=== PATIENT | female | born 1985 | race Two or more races ===

== ENCOUNTER 2020-12-10 10:39 | Inpatient (IN) | payer OTHER ==
[~2020-12-10] VITALS: Ht 157.5 cm; Wt 90.1 kg
[2020-12-10 11:49] LABS: BASOPHILS % (AUTO) 1 % (0-1); EOSINOPHILS % (AUTO) 1 % (1-7); LYMPHOCYTES % (AUTO) 24 % (22-44); MEAN CORPUSCULAR HEMOGLOBIN 28.3 pg (27.0-34.8); MEAN CORPUSCULAR HGB CONC 33.5 g/dL (32.4-35.8); MEAN PLATELET VOLUME 9.8 fL (7.4-10.4); MONOCYTES % (AUTO) 4 % (2-9); NEUTROPHILS % (AUTO) 70 % (42-75); PLATELET COUNT 279 x10^3/uL (130-400); RED CELL DISTRIBUTION WIDTH 13.6 % (9.6-15.2)
[2020-12-10 11:56] LABS: MD NO
[2020-12-10 12:02] LABS: ALBUMIN 3.8 g/dL (3.4-5.0); ANION GAP 9 mmol/L (5-15); CALCIUM 9.5 mg/dL (8.5-10.1); CHLORIDE 99 mmol/L (98-107)
--- NOTE | 2020-12-10 12:03 | NUR ---
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
--- NOTE | 2020-12-10 12:29 | NUR ---
PT CAME IN CO LOWER LEG SORES AND WOUNDS. THERE IS SIGNIFICANT WOUND ON HER RIGHT LOWER LEG THAT HAS BEEN "LIKE THAT FOR 3 MONTHS". PT HAS HX OF DMII. ACCOMPANIED BY FRIEND. CONNECTED TO MONITORING EQUIPMENT
[2020-12-10] MEDS ORDERED: INSULIN LISPRO 100 UNITS/ML, PEN ONE (13:21)
[2020-12-10] MEDS ORDERED: AMPICILLIN/SULBACTAM 3 GM in SODIUM CHLORIDE 0.9% 100 ML IV ONE (13:30)
[2020-12-10] MEDS ORDERED: VANCOMYCIN PER PHARMACY MC PRN ×2 (13:30→16:00)
[2020-12-10] MEDS ORDERED: INSULIN REGULAR 100 UNITS/ML, 3ML VIAL IVPush ONE (13:30)
[2020-12-10] MEDS ORDERED: PLEASE ENTER ALLERGIES MC SCH (13:30)
[2020-12-10] MEDS ORDERED: SODIUM CHLORIDE 0.9% 1,000ML IVBOLUS ONE (14:00)
[2020-12-10 14:06] LABS: HCT (SEDRATE) 42.4 % (34.6-47.8)
[2020-12-10] MEDS ORDERED: PHARMACOKINETIC MONITORING MC PRN (14:30)
[2020-12-10] MEDS ORDERED: VANCOMYCIN 1,600 MG in SODIUM CHLORIDE 0.9% 250 ML IV ONE (14:30)
[2020-12-10] MEDS ORDERED: KETOROLAC 30 MG/1 ML ONE (15:04)
[2020-12-10] MEDS ORDERED: METF500T17 PO (15:10)
[2020-12-10] MEDS ORDERED: LOSA25TA25 PO (15:10)
[2020-12-10] MEDS ORDERED: KETOROLAC 30 MG/1 ML IVPush ONE (15:30)
[2020-12-10] MEDS: AMPICILLIN/SULBACTAM 3 GM in SODIUM CHLORIDE 0.9% 100 ML IV SCH (15:56)
[2020-12-10] MEDS ORDERED: INSULIN LISPRO 100 UNIT/ML, 3ML VIAL SQ-INSULIN SCH (16:00)
[2020-12-10] MEDS ORDERED: BUTALB/APAP/CAFFEINE 50MG/325MG/40MG PO PRN (16:00)
[2020-12-10] MEDS ORDERED: ONDANSETRON ODT 4 MG PO PRN (16:00)
[2020-12-10] MEDS ORDERED: GUAIFENESIN/DM 200-20MG, 10ML UDC PO PRN (16:00)
[2020-12-10] MEDS ORDERED: ENALAPRILAT 1.25 MG/ML, 2ML IVPush PRN (16:00)
[2020-12-10] MEDS ORDERED: BACLOFEN 10 MG TABLET PO PRN (16:00)
[2020-12-10] MEDS ORDERED: LABETALOL 5MG/ML, 20ML IVPush PRN (16:00)
[2020-12-10] MEDS ORDERED: ONDANSETRON 2MG/ML, 2ML IVPush PRN (16:00)
[2020-12-10] MEDS ORDERED: CYANOCOBALAMIN 1,000 MCG/ML, 1ML IM ONE (17:00)
[2020-12-10] MEDS: ENOXAPARIN 40 MG/0.4 ML SQ SCH (17:23)
[2020-12-10] MEDS ORDERED: DIPHENHYDRAMINE 50 MG CAPSULE ONE (17:41)
[2020-12-10 17:47] VITALS: BP 113/74
[2020-12-10] MEDS ORDERED: DIPHENHYDRAMINE 50 MG CAPSULE PO PRN ×2 (18:00)
[2020-12-10] MEDS: INSULIN LISPRO 100 UNITS/ML, PEN SQ-INSULIN SCH ×2 (18:03→21:40)
[2020-12-10] MEDS: ASCORBIC ACID 500 MG TABLET PO SCH (18:21)
[2020-12-10] MEDS: BUTALB/APAP/CAFFEINE 50MG/325MG/40MG PO PRN (18:21)
[2020-12-10 18:50] VITALS: BP 127/79
[2020-12-10] MEDS: MELATONIN 5 MG TABLET PO SCH (21:39)
[2020-12-11] MEDS: AMPICILLIN/SULBACTAM 3 GM in SODIUM CHLORIDE 0.9% 100 ML IV SCH ×3 (00:12→16:44)
[2020-12-11 00:22] VITALS: BP 107/74
[2020-12-11] MEDS ORDERED: VANCOMYCIN 1,300 MG in SODIUM CHLORIDE 0.9% 250 ML IV SCH ×2 (02:30→04:00)
[2020-12-11 05:43] LABS: BASOPHILS % (AUTO) 1 % (0-1); EOSINOPHILS % (AUTO) 2 % (1-7); LYMPHOCYTES % (AUTO) 35 % (22-44); MEAN CORPUSCULAR HEMOGLOBIN 28.5 pg (27.0-34.8); MEAN CORPUSCULAR HGB CONC 33.8 g/dL (32.4-35.8); MEAN PLATELET VOLUME 9.6 fL (7.4-10.4); MONOCYTES % (AUTO) 4 % (2-9); NEUTROPHILS % (AUTO) 59 % (42-75); PLATELET COUNT 241 x10^3/uL (130-400); RED BLOOD COUNT 4.48 x10^6/uL (3.82-5.3); RED CELL DISTRIBUTION WIDTH 13.4 % (9.6-15.2)
[2020-12-11 05:44] LABS: CHLORIDE 107 mmol/L (98-107)
[2020-12-11 05:46] LABS: MD NO
[2020-12-11 06:17] LABS: ALANINE AMINOTRANSFERASE 26 U/L (12-78); ALBUMIN 2.8 g/dL (3.4-5.0); ALKALINE PHOSPHATASE 92 U/L (45-117); ANION GAP 9 mmol/L (5-15); BILIRUBIN,TOTAL 0.5 mg/dL (0.2-1.0); CREATININE 0.58 mg/dL (0.55-1.02); TOTAL PROTEIN 6.2 g/dL (6.4-8.2)
[2020-12-11 06:30] VITALS: BP 108/75
[2020-12-11] MEDS: CHOLECALCIFEROL 5,000u TAB PO SCH (08:59)
[2020-12-11] MEDS: INSULIN LISPRO 100 UNITS/ML, PEN SQ-INSULIN SCH ×4 (08:59→20:55)
[2020-12-11] MEDS: MULTIVITS,STRESS FORMULA 1 TABLET PO SCH (09:00)
[2020-12-11] MEDS: SENNA/DOCUSATE TABLET PO SCH (09:00)
[2020-12-11] MEDS: ASCORBIC ACID 500 MG TABLET PO SCH ×2 (09:00→16:44)
[2020-12-11] MEDS: ZINC SULFATE 220 MG CAPSULE PO SCH (09:00)
[2020-12-11] MEDS: BUTALB/APAP/CAFFEINE 50MG/325MG/40MG PO PRN (12:13)
[2020-12-11] MEDS: VANCOMYCIN 1,800 MG in SODIUM CHLORIDE 0.9% 250 ML IV SCH (12:13)
[2020-12-11 13:03] VITALS: BP 103/69
[2020-12-11] MEDS: ENOXAPARIN 40 MG/0.4 ML SQ SCH (16:43)
[2020-12-11 19:47] VITALS: BP 133/80
[2020-12-11] MEDS: MELATONIN 5 MG TABLET PO SCH (20:42)
[2020-12-12] MEDS: AMPICILLIN/SULBACTAM 3 GM in SODIUM CHLORIDE 0.9% 100 ML IV SCH ×2 (00:06→07:36)
[2020-12-12] MEDS: VANCOMYCIN 1,800 MG in SODIUM CHLORIDE 0.9% 250 ML IV SCH (00:40)
[2020-12-12 00:44] VITALS: BP 105/71
[2020-12-12 07:07] VITALS: BP 114/74
[2020-12-12] MEDS: CHOLECALCIFEROL 5,000u TAB PO SCH (07:36)
[2020-12-12] MEDS: ASCORBIC ACID 500 MG TABLET PO SCH ×2 (07:36→16:05)
[2020-12-12] MEDS: INSULIN LISPRO 100 UNITS/ML, PEN SQ-INSULIN SCH ×4 (07:36→19:50)
[2020-12-12] MEDS: ZINC SULFATE 220 MG CAPSULE PO SCH (07:36)
[2020-12-12] MEDS: MULTIVITS,STRESS FORMULA 1 TABLET PO SCH (07:36)
[2020-12-12] MEDS: SENNA/DOCUSATE TABLET PO SCH (07:36)
[2020-12-12] MEDS: CALCIUM CARBONATE 500 MG TAB.CHEW PO SCH ×2 (09:11→19:50)
[2020-12-12] MEDS: AMOXICILLIN/CLAV 875-125MG TABLET PO SCH ×2 (12:27→19:50)
[2020-12-12] MEDS: BUTALB/APAP/CAFFEINE 50MG/325MG/40MG PO PRN ×2 (12:27→19:41)
[2020-12-12 12:43] LABS: TROPONIN I < 0.015 ng/mL (0.000-0.045)
[2020-12-12 13:25] VITALS: BP 105/73
[2020-12-12] MEDS: ENOXAPARIN 40 MG/0.4 ML SQ SCH (16:05)
[2020-12-12] MEDS: MELATONIN 5 MG TABLET PO SCH (19:51)
[2020-12-12 20:14] VITALS: BP 103/69
[2020-12-13 00:25] VITALS: BP 108/63
[2020-12-13 07:10] VITALS: BP 111/76
[2020-12-13] MEDS: SENNA/DOCUSATE TABLET PO SCH (07:37)
[2020-12-13] MEDS: ASCORBIC ACID 500 MG TABLET PO SCH (07:37)
[2020-12-13] MEDS: MULTIVITS,STRESS FORMULA 1 TABLET PO SCH (07:38)
[2020-12-13] MEDS: ZINC SULFATE 220 MG CAPSULE PO SCH (07:38)
[2020-12-13] MEDS: BUTALB/APAP/CAFFEINE 50MG/325MG/40MG PO PRN (07:38)
[2020-12-13] MEDS: AMOXICILLIN/CLAV 875-125MG TABLET PO SCH (07:38)
[2020-12-13] MEDS: CALCIUM CARBONATE 500 MG TAB.CHEW PO SCH (07:38)
[2020-12-13] MEDS: CHOLECALCIFEROL 5,000u TAB PO SCH (07:38)
[2020-12-13] MEDS: INSULIN LISPRO 100 UNITS/ML, PEN SQ-INSULIN SCH ×2 (07:39→11:48)
[2020-12-13] MEDS ORDERED: METF500T17 PO (09:18)
[2020-12-13] MEDS ORDERED: AMOX1TAB64 PO (14:24)
== END 2020-12-13 13:25 | disposition home or self-care (01) | DRG 603 ==
LOC: ED 12:17 → EDIP 15:41 → 3N 16:08 → DCLOUNGE 12-13 13:08
PROVIDERS: ADMIT Family Medicine; ATTEND Family Medicine
DX: L03.115 Cellulitis of right lower limb (principal); L97.919 Non-pressure chronic ulcer of unspecified part of right lower leg with unspecified severity; E11.65 Type 2 diabetes mellitus with hyperglycemia; E66.01 Morbid (severe) obesity due to excess calories; I10 Essential (primary) hypertension; I87.2 Venous insufficiency (chronic) (peripheral); Z79.4 Long term (current) use of insulin; Z91.19 Patient's noncompliance with other medical treatment and regimen; Z30.2 Encounter for sterilization; Z68.37 Body mass index [BMI] 37.0-37.9, adult; Z79.899 Other long term (current) drug therapy; Z79.891 Long term (current) use of opiate analgesic; Z79.01 Long term (current) use of anticoagulants
CPT/HCPCS: 36415; 80048; 80053; 80202; 82040; 82962; 83036; 83605; 83735; 84100; 84484; 85025; 85651; 86140; 87040; 87070; 87077; 87186; 87205; 93005; 96361; 96365; 96375; G0378; J0295; J1650; J1885; J3370; J1815; J3420; J7030; J7050